=== PATIENT | male | born 1990 | race Caucasian/White ===

== ENCOUNTER 2017-10-23 13:35 | Emergency (ER) | payer MEDICAID ==
[2017-10-23] MEDS ORDERED: MORPHINE SULFATE 10 MG/ML INJ IV ONE ×2 (14:19→15:11)
[2017-10-23] MEDS ORDERED: NORMAL SALINE 1000 ML 1,000 ML IV ONE (14:19)
[2017-10-23] MEDS ORDERED: ONDANSETRON HCL INJ/PF 4 MG/2 ML SDV IV ONE ×2 (14:19→15:11)
--- NOTE | 2017-10-23 14:20 | ER Document Report ---
ED Medical Screen (RME) - General Chief Complaint: Abdominal Pain Stated Complaint: ABDOMINAL PAIN Notes: 27-year-old male with a 2 day history of worsening epigastric pain. States that he is presently 4 years post cholecystectomy. Food makes it worse. No fever. Cannot keep anything down. Pain is rated as a 4/5 on a numeric pain scale. No fever. No recent surgeries. Denies any heavy alcohol use. Was engaged in some marijuana use recently but not a heavy smoker. Not smoke cigarettes. I have greeted and performed a rapid initial assessment of this patient. A comprehensive ED assessment and evaluation of the patient, analysis of test results and completion of the medical decision making process will be conducted by additional ED providers. TRAVEL OUTSIDE OF THE [place] IN LAST 30 DAYS: No - Related Data Allergies/Adverse Reactions: codeine Allergy (Verified 10/23/17 13:37) haloperidol [From Haldol] Allergy (Verified 10/23/17 13:37) ketorolac Allergy (Verified 10/23/17 13:39) Past Medical History - General Information source: Patient - Social History Cigarette use (# per day): No Frequency of alcohol use: Occasional Drug Abuse: Marijuana Lives with: Family Family history: Reviewed & Not Pertinent Review of Systems - Review of Systems Constitutional: No symptoms reported EENT: No symptoms reported Cardiovascular: No symptoms reported Respiratory: No symptoms reported Gastrointestinal: Abdominal pain, Nausea, Vomiting. denies: Diarrhea Genitourinary: No symptoms reported Male Genitourinary: No symptoms reported Musculoskeletal: No symptoms reported Skin: No symptoms reported Hematologic/Lymphatic: No symptoms reported Neurological/Psychological: No symptoms reported Physical Exam - Vital signs Interpretation: Normal - General General appearance: Appears well, Alert, Other - Uncomfortable appearing - HEENT Head: Normocephalic, Atraumatic Eyes: Normal Pupils: PERRL - Respiratory Respiratory status: No respiratory distress Chest status: Nontender Breath sounds: Normal Chest palpation: Normal - Cardiovascular Rhythm: Regular Heart sounds: Normal auscultation Murmur: No - Abdominal Inspection: Normal Distension: No distension Bowel sounds: Normal Tenderness: Tender, Other - Tenderness to palpation with mild guarding in the epigastric region Organomegaly: No organomegaly - Back Back: Normal, Nontender - Extremities General upper extremity: Normal inspection, Nontender, Normal color, Normal ROM , Normal temperature General lower extremity: Normal inspection, Nontender, Normal color, Normal ROM , Normal temperature, Normal weight bearing. No: Jennifer's sign - Neurological Neuro grossly intact: Yes Cognition: Normal Orientation: AAOx4 [place] Coma Scale Eye Opening: Spontaneous [place] Coma Scale Verbal: Oriented [place] Coma Scale Motor: Obeys Commands [place] Coma Scale Total: 15 Speech: Normal Motor strength normal: LUE, RUE, LLE, RLE Sensory: Normal - Psychological Associated symptoms: Normal affect, Normal mood - Skin Skin Temperature: Warm Skin Moisture: Dry Skin Color: Normal
[2017-10-23 15:08] LABS: ABSOLUTE EOSINOPHILS # (AUTO) 0.1 10^3/uL (0.0-0.6); ABSOLUTE MONOCYTES (AUTO) 0.6 10^3/uL (0.1-1.4); ABSOLUTE NEUT (AUTO) 4.2 10^3/uL (1.7-8.2); BASOPHILS % (AUTO) 0.6 % (0-2); EOSINOPHILS % (AUTO) 1.8 % (0-6); HEMOGLOBIN 14.9 g/dL (13.5-17.0); LYMPHOCYTES % (AUTO) 28.7 % (13-45); MEAN CORPUSCULAR HEMOGLOBIN 31.5 pg (27.0-33.4); MEAN CORPUSCULAR HGB CONC 34.7 g/dL (32.0-36.0); MEAN CORPUSCULAR VOLUME 91 fl (80-97); MONOCYTES % (AUTO) 9.1 % (3-13); PLATELET COUNT 244 10^3/uL (150-450); RED BLOOD COUNT 4.74 10^6/uL (4.35-5.55); RED CELL DISTRIBUTION WIDTH 13.5 % (11.5-14.0); SEGMENTED NEUTROPHILS % (AUTO) 59.8 % (42-78); TOTAL CELLS COUNTED % (AUTO) 100 %; WHITE BLOOD COUNT 6.9 10^3/uL (4.0-10.5)
[2017-10-23 15:08] LABS: APPEARANCE,URINE CLEAR; BILIRUBIN,URINE NEGATIVE (NEGATIVE); COLOR,URINE STRAW; GLUCOSE, URINE NEGATIVE (NEGATIVE); KETONES,URINE NEGATIVE (NEGATIVE); LEUKOCYTE ESTERASE,URINE NEGATIVE (NEGATIVE); NITRITE,URINE NEGATIVE (NEGATIVE); PROTEIN,URINE NEGATIVE (NEGATIVE); URINE SPECIFIC GRAVITY 1.009; UROBILINOGEN,URINE NEGATIVE mg/dL (<2.0)
--- NOTE | 2017-10-23 15:17 | ER Document Report ---
ED GI/ - General Mode of Arrival: Ambulatory Information source: Patient TRAVEL OUTSIDE OF THE [place] IN LAST 30 DAYS: No <EBONY LAST - Last Filed: 10/23/17 15:21> <ABDIFATAHBRAYANKENTON - Last Filed: 10/23/17 23:28> - General Chief Complaint: Abdominal Pain Stated Complaint: ABDOMINAL PAIN Time Seen by Provider: 10/23/17 14:25 Notes: Patient is a 27 year old male with hypertension presents to the emergency department complaining of multiple symptoms including nausea, vomiting and epigastric abdominal pain onset 2 days ago. Patient states the pain is a 4/5 in severity and is exacerbated with food. At bedside patient states drinking contrast also exacerbates his pain. Patient denies fevers, diarrhea, hematemesis , being around livestock or sick contacts, or handling shellfish or reptiles. (EBONY LAST) - Related Data Allergies/Adverse Reactions: codeine Allergy (Verified 10/23/17 13:37) haloperidol [From Haldol] Allergy (Verified 10/23/17 13:37) ketorolac Allergy (Verified 10/23/17 13:39) Past Medical History - General Information source: Patient - Social History Smoking Status: Never Smoker Cigarette use (# per day): No Chew tobacco use (# tins/day): No Frequency of alcohol use: Occasional Drug Abuse: Marijuana - states has not had any recent use. Lives with: Family Family History: Hypertension Patient has suicidal ideation: No Patient has homicidal ideation: No - Past Medical History Cardiac Medical History: Reports: Hx Hypertension Past Surgical History: Reports: Hx Cholecystectomy - 2013 <EBONY LAST - Last Filed: 10/23/17 15:21> Review of Systems - Review of Systems Constitutional: No symptoms reported. denies: Fever EENT: No symptoms reported Cardiovascular: No symptoms reported Respiratory: No symptoms reported Gastrointestinal: See HPI, Abdominal pain, Nausea, Vomiting. denies: Diarrhea Genitourinary: No symptoms reported Male Genitourinary: No symptoms reported Musculoskeletal: No symptoms reported Skin: No symptoms reported Hematologic/Lymphatic: No symptoms reported Neurological/Psychological: No symptoms reported -: Yes All other systems reviewed and negative <EBONY LAST - Last Filed: 10/23/17 15:21> Physical Exam <EBONY LAST - Last Filed: 10/23/17 15:21> <KENTON RAHMAN - Last Filed: 10/23/17 23:28> - Vital signs Vitals: Temp Pulse Resp BP Pulse Ox 97.9 F 62 16 131/73 H 97 10/23/17 13:46 10/23/17 13:46 10/23/17 13:46 10/23/17 13:46 10/23/17 13:46 - Notes Notes: GENERAL: Alert, interacts well. No acute distress. HEAD: Normocephalic, atraumatic. EYES: Pupils equal, round, and reactive to light. Extraocular movements intact. ENT: Oral mucosa moist, tongue midline. NECK: Full range of motion. Supple. Trachea midline. LUNGS: Clear to auscultation bilaterally, no wheezes, rales, or rhonchi. No respiratory distress. HEART: Regular rate and rhythm. No murmurs, gallops, or rubs. ABDOMEN: Soft, tender to palpation to the left mid-abdomen and epigastric area. Obese. Non-distended. Bowel sounds present in all 4 quadrants. EXTREMITIES: Moves all 4 extremities spontaneously. NEUROLOGICAL: Alert and oriented x3. Normal speech. PSYCH: Normal affect, normal mood. SKIN: Warm, dry, normal turgor. No rashes or lesions noted. (EBONY LAST) Course - Laboratory Result Diagrams: 10/23/17 14:36 10/23/17 14:36 <EBONY LAST - Last Filed: 10/23/17 15:21> - Laboratory Result Diagrams: 10/23/17 14:36 10/23/17 14:36 <KENTON RAHMAN - Last Filed: 10/23/17 23:28> - Re-evaluation Re-evalutation: 10/23/17 18:03 CBC unremarkable, CMP grossly unremarkable, lipase normal, urinalysis unremarkable and shows no signs of dehydration, specific gravity is low at 1.009 , there are no ketones, there is no blood, urine drug screen shows marijuana which is not consistent with the patient's history that the last time he used was 3-4 weeks ago. Patient states he moved here from [place] 1 week ago but has not touched any marijuana in 3-[address] scan of the abdomen and pelvis revealed surgically absent gallbladder, normal appendix no acute process. At this time I do not have a specific explanation for the patient's pain. I discussed with the patient that I am concerned for the possibility of gastritis versus gastric ulcer or cyclic vomiting syndrome associated with marijuana use. Patient denies that there is any possibility that the symptoms are being caused by marijuana because he states he has not used in 3-4 weeks. Patient is advised to take Zantac 150 mg twice a day, Carafate and to use Bentyl for any cramping pains in his stomach. Follow-up with gastroenterology as an outpatient and return for fevers, worsening pain, blood in the vomit. ( KENTON RAHMAN) - Vital Signs Vital signs: Temp Pulse Resp BP Pulse Ox 98.1 F 60 16 128/67 H 99 10/23/17 18:44 10/23/17 18:44 10/23/17 13:46 10/23/17 18:44 10/23/17 18:44 - Laboratory Laboratory results interpreted by me: 10/23/17 14:36 Chloride 108 H Discharge <EBONY LAST - Last Filed: 10/23/17 15:21> <KENTON RAHMAN - Last Filed: 10/23/17 23:28> - Discharge Clinical Impression: Epigastric abdominal pain of unknown etiology Condition: Stable Disposition: HOME, SELF-CARE Additional Instructions: I do not know exactly what is causing her pain. It could be a gastric ulcer or irritation of your stomach called gastritis. Please drink plenty fluids, avoid spicy foods, acidic foods, coffee, chewing tobacco and fatty foods. Please take Zantac 150 mg twice a day for at least the next 2 weeks. Please take Carafate 1 tablet before each meal and before bedtime. Take this 1 hour after your other medications or ulcer other medications will not work. This medication helps to block the acid from hitting your stomach but if you take it before your other medications that will block the other medications from working. The Zofran and Phenergan are both for nausea. The Bentyl was to help with the pain in your stomach. Return for fevers or blood in your vomit. Please follow-up with a vault installer as an outpatient. Prescriptions: Dicyclomine HCl [Bentyl 20 mg Tablet] 20 mg PO QID #40 tablet Ondansetron [Zofran Odt 4 mg Tablet] 1 - 2 tab PO Q4H PRN #15 tab.rapdis PRN Reason: For Nausea/Vomiting Promethazine HCl [Phenergan 25 mg Tablet] 1 - 2 tab PO Q6H PRN #15 tablet PRN Reason: Ranitidine HCl [Zantac 150 mg Tablet] 150 mg PO BID #60 tablet Sucralfate [Carafate 1 gm Tablet] 1 gm PO ACHS #60 tablet Forms: Return to Work Referrals: LUIS VERA MD [ACTIVE STAFF] - Follow up in 1 week Scribe Attestation: 10/23/17 23:28 I personally performed the services described in the documentation, reviewed and edited the documentation which was dictated to the scribe in my presence, and it accurately records my words and actions. (KENTON RAHMAN) Scribe Documentation - Scribe Written by Sammye:: Niesha Avalos, 10/23/2017 15:20 acting as scribe for :: Wallace <EBONY LAST - Last Filed: 10/23/17 15:21>
[2017-10-23 15:27] LABS: ALANINE AMINOTRANSFERASE 33 U/L (21-72); ALBUMIN 4.1 g/dL (3.5-5.0); ALKALINE PHOSPHATASE 64 U/L (38-126); ANION GAP 11 (5-19); ASPARTATE AMINO TRANSFERASE 25 U/L (17-59); BILIRUBIN,DIRECT 0.3 mg/dL (0.0-0.4); BILIRUBIN,TOTAL 0.3 mg/dL (0.2-1.3); BLOOD UREA NITROGEN 10 mg/dL (7-20); CALCIUM 9.8 mg/dL (8.4-10.2); CARBON DIOXIDE 25 mmol/L (22-30); CHLORIDE 108 mmol/L (98-107); GLUCOSE 82 mg/dL (75-110); POTASSIUM 4.2 mmol/L (3.6-5.0); SODIUM 143.9 mmol/L (137-145); TOTAL PROTEIN 6.6 g/dL (6.3-8.2)
[2017-10-23] MEDS ORDERED: HYDROMORPHONE HCL INJ/PF 2 MG/ML AMPULE IV ONE (16:15)
[2017-10-23 16:56] LABS: URINE AMPHETAMINES SCREEN NEGATIVE; URINE BARBITURATES SCREEN NEGATIVE; URINE BENZODIAZEPINES SCREEN NEGATIVE; URINE COCAINE SCREEN NEGATIVE; URINE MARIJUANA (THC) SCREEN UNCONFIRMED POSITIVE; URINE METHADONE SCREEN NEGATIVE; URINE PHENCYCLIDINE SCREEN NEGATIVE
--- NOTE | 2017-10-23 17:52 | RADIOLOGY REPORT (SQ) ---
EXAM DESCRIPTION: CT ABD/PELVIS WITH IV ORAL COMPLETED DATE/TIME: 10/23/2017 5:37 pm REASON FOR STUDY: epigastric abdominal pain COMPARISON: None. TECHNIQUE: CT scan of the abdomen and pelvis performed with intravenous and oral contrast using estela stephane scanning technique with dynamic intravenous contrast injection. Images reviewed with lung, soft t issue, and bone windows. Reconstructed coronal and sagittal MPR images reviewed. Delayed images for e valuation of the urinary system also acquired. All images stored on PACS. All CT scanners at this facility use dose modulation, iterative reconstruction, and/or weight based d osing when appropriate to reduce radiation dose to as low as reasonably achievable (ALARA). [facility]: Dose Right [facility]: CareDose [facility]: Dose Right [facility]: Teradose 4D [facility]: [employer] CONTRAST TYPE AND DOSE: contrast/concentration: Isovue 370.00 mg/ml; Total Contrast Delivered: 100.0 ml; Total Saline Delivered: 45.0 ml RENAL FUNCTION: None required. The patient is less than 50 years old. RADIATION DOSE: CT Rad equipment meets quality standard of care and radiation dose reduction techniq ues were employed. CTDIvol: 21.1 mGy. DLP: 2270 mGy-cm. . LIMITATIONS: None. FINDINGS: LOWER CHEST: No significant findings. No nodules or infiltrates. LIVER: Normal size. No masses. No dilated ducts. SPLEEN: Normal size. No focal lesions. PANCREAS: No masses. No significant calcifications. No adjacent inflammation or peripancreatic fluid collections. Pancreatic duct not dilated. GALLBLADDER: Surgically absent. ADRENAL GLANDS: No significant masses or asymmetry. RIGHT KIDNEY AND URETER: No solid masses. No significant calcifications. No hydronephrosis or hyd roureter. LEFT KIDNEY AND URETER: No solid masses. No significant calcifications. No hydronephrosis or hydr oureter. AORTA AND VESSELS: No aneurysm. No dissection. Renal arteries, SMA, celiac without stenosis. RETROPERITONEUM: No retroperitoneal adenopathy, hemorrhage or masses. BOWEL AND PERITONEAL CAVITY: No obstruction. No visualized masses. No free fluid. No inflammatory ch anges or thickening of bowel wall. APPENDIX: Normal. PELVIS: No significant masses. Normal bladder. No free fluid. ABDOMINAL WALL: No masses. No hernias. BONES: No significant or acute findings. OTHER: No other significant finding. IMPRESSION: NO SIGNIFICANT OR ACUTE FINDINGS IN THE ABDOMEN OR PELVIS. TECHNICAL DOCUMENTATION: JOB ID: [id number] Quality ID # [id number]: Final reports with documentation of one or more dose reduction techniques (e.g., Au tomated exposure control, adjustment of the mA and/or kV according to patient size, use of iterative reconstruction technique) 2010 [employer]- All Rights Reserved Reading location - IP/workstation name: [email or web address]
[2017-10-23] MEDS ORDERED: METOCLOPRAMIDE HCL INJ/PF 10 MG/2 ML SDV IV ONE (17:54)
[2017-10-23] MEDS ORDERED: DIPHENHYDRAMINE HCL 50 MG/ML VIAL IV ONE (17:54)
[2017-10-23] MEDS ORDERED: DICYCLOMINE HCL INJ 20 MG/2 ML AMPULE IM ONE (17:55)
[2017-10-23 18:48] VITALS: BP 128/67
== END 2017-10-23 18:48 | disposition home or self-care (01) ==
LOC: ER 13:35
DX: R10.9 Unspecified abdominal pain (principal); R11.2 Nausea with vomiting, unspecified; R10.13 Epigastric pain; I10 Essential (primary) hypertension; Z88.6 Allergy status to analgesic agent; Z90.49 Acquired absence of other specified parts of digestive tract
CPT/HCPCS: 96376; 99284; 96372; 96361; 96374; 96375; 36415; 83690; 85025; 80053; 81001; 80307; 74177; J0500; J2270; J1170; J2405; J7030

== ENCOUNTER 2017-11-16 15:13 | Emergency (ER) | payer MEDICAID ==
--- NOTE | 2017-11-16 16:52 | ER Document Report ---
ED General - General Chief Complaint: Flank Pain Stated Complaint: ABDOMINAL PAIN Time Seen by Provider: 11/16/17 16:36 Mode of Arrival: Ambulatory Information source: Patient Notes: 27 yr old male hx of kidney stones presents with bilateral flank pain over the past few days with burning on urination. pt notes he passed a stone a few days prior, denies any fevers or cihlls., admits ot fatigue TRAVEL OUTSIDE OF THE [place] IN LAST 30 DAYS: No - HPI Onset: Just prior to arrival Onset/Duration: Sudden Quality of pain: Achy Severity: Mild Pain Level: 1 Associated symptoms: Nausea Exacerbated by: Denies Relieved by: Denies Similar symptoms previously: No Recently seen / treated by doctor: No - Related Data Allergies/Adverse Reactions: codeine Allergy (Verified 10/23/17 13:37) haloperidol [From Haldol] Allergy (Verified 10/23/17 13:37) ketorolac Allergy (Verified 10/23/17 13:39) Past Medical History - Social History Smoking Status: Never Smoker Cigarette use (# per day): No Chew tobacco use (# tins/day): No Smoking Education Provided: No Family History: Hypertension - Past Medical History Cardiac Medical History: Reports: Hx Hypertension Renal/ Medical History: Denies: Hx Peritoneal Dialysis Past Surgical History: Reports: Hx Cholecystectomy - 2013 Review of Systems - Review of Systems Notes: REVIEW OF SYSTEMS: CONSTITUTIONAL : Denies fever, chills, or sweats. Denies recent illness. EENT: Denies eye, ear, throat, or mouth pain or symptoms. Denies nasal or sinus congestion or discharge. Denies throat, tongue, or mouth swelling or difficulty swallowing. CARDIOVASCULAR: Denies chest pain. Denies palpitations or racing or irregular heart beat. Denies ankle edema. RESPIRATORY: Denies cough, cold, or chest congestion. Denies shortness of breath, difficulty breathing, or wheezing. GASTROINTESTINAL: admits to bilateral flank pain GENITOURINARY: dysuria MUSCULOSKELETAL: Denies back or neck pain or stiffness. Denies joint pain or swelling. SKIN: Denies rash, lesions or sores. HEMATOLOGIC : Denies easy bruising or bleeding. LYMPHATIC: Denies swollen, enlarged glands. NEUROLOGICAL: Denies confusion or altered mental status. Denies passing out or loss of consciousness. Denies dizziness or lightheadedness. Denies headache. Denies weakness or paralysis or loss of use of either side. Denies problems with gait or speech. Denies sensory loss, numbness, or tingling. Denies seizures. PSYCHIATRIC: Denies anxiety or stress. Denies depression, suicidal ideation, or homicidal ideation. ALL OTHER SYSTEMS REVIEWED AND NEGATIVE. Dictation was performed using [employer] voice recognition software PHYSICAL EXAMINATION: GENERAL: Well-appearing, well-nourished and in no acute distress. HEAD: Atraumatic, normocephalic. EYES: Pupils equal round and reactive to light, extraocular movements intact, sclera anicteric, conjunctiva are normal. ENT: Nares patent, oropharynx clear without exudates. Moist mucous membranes. NECK: Normal range of motion, supple without lymphadenopathy LUNGS: Breath sounds clear to auscultation bilaterally and equal. No wheezes rales or rhonchi. HEART: Regular rate and rhythm without murmurs ABDOMEN: Soft, nontender, nondistended abdomen. No guarding, no rebound. No masses appreciated. Musculoskeletal: Normal range of motion, no pitting or edema. No cyanosis. NEUROLOGICAL: Cranial nerves grossly intact. Normal speech, normal gait. Normal sensory, motor exams PSYCH: Normal mood, normal affect. SKIN: Warm, Dry, normal turgor, no rashes or lesions noted. Physical Exam - Vital signs Vitals: Temp Pulse Resp BP Pulse Ox 98.6 F 81 16 151/67 H 97 11/16/17 15:19 11/16/17 15:19 11/16/17 15:19 11/16/17 15:19 11/16/17 15:19 Course - Re-evaluation Re-evalutation: 11/16/17 16:51 pyelo vs kidney stone, labs pending 11/16/17 18:51 labs noted no acute abnormality, ct flank was negative, i do not see a specific cause of the patietns pain and he looks much more comfortable, will treat him symptomatically After performing a Medical Screening Examination, I estimate there is LOW risk for ACUTE APPENDICITIS, BOWEL OBSTRUCTION, ACUTE CHOLECYSTITIS, PERFORATED DIVERTICULITIS, INCARCERATED HERNIA, PANCREATITIS, TESTICULAR TORSION or PERFORATED ULCER, thus I consider the discharge disposition reasonable. Also, there is no evidence or peritonitis, sepsis, or toxicity. I have reevaluated this patient multiple times and no significant life threatening changes are noted. The patient and I have discussed the diagnosis and risks, and we agree with discharging home with close follow-up with the understanding that symptoms and presentations can change. We also discussed returning to the Emergency Department immediately if new or worsening symptoms occur. We have discussed the symptoms which are most concerning (e.g., bloody stool, fever, changing or worsening pain, intractable vomiting - standard verbal up date) that necessitate immediate return. - Vital Signs Vital signs: Temp Pulse Resp BP Pulse Ox 98.6 F 81 16 151/67 H 97 11/16/17 15:19 11/16/17 15:19 11/16/17 15:19 11/16/17 15:19 11/16/17 15:19 - Laboratory Result Diagrams: 11/16/17 17:25 11/16/17 17:25 Laboratory results interpreted by me: 11/16/17 17:25 Urine Urobilinogen 2.0 H - Diagnostic Test Radiology reviewed: Image reviewed, Reports reviewed Discharge - Discharge Clinical Impression: Flank pain Condition: Stable Disposition: HOME, SELF-CARE Instructions: Flank Pain ([facility]) Additional Instructions: Follow up with your physician tomorrow for further care or return to the ED IMMEDIATELY if symptoms worsen or new concerns occur. If you cannot afford to follow up with your primary care physician a list of low cost clinics have been provided at the end of your discharge papers as well. Prescriptions: Prednisone 60 mg PO DAILY #15 tablet
[2017-11-16] MEDS ORDERED: HYDROCODONE/ACETAMINOPHEN 5-325 MG TABLET PO ONE (17:17)
[2017-11-16 18:04] LABS: APPEARANCE,URINE CLEAR; BILIRUBIN,URINE NEGATIVE (NEGATIVE); COLOR,URINE YELLOW; GLUCOSE, URINE NEGATIVE (NEGATIVE); KETONES,URINE NEGATIVE (NEGATIVE); LEUKOCYTE ESTERASE,URINE NEGATIVE (NEGATIVE); NITRITE,URINE NEGATIVE (NEGATIVE); PROTEIN,URINE NEGATIVE (NEGATIVE)
[2017-11-16 18:05] LABS: ABSOLUTE EOSINOPHILS # (AUTO) 0.1 10^3/uL (0.0-0.6); ABSOLUTE LYMPHOCYTES (AUTO) 1.7 10^3/uL (0.5-4.7); ABSOLUTE MONOCYTES (AUTO) 0.6 10^3/uL (0.1-1.4); ABSOLUTE NEUT (AUTO) 6.3 10^3/uL (1.7-8.2); BASOPHILS % (AUTO) 0.4 % (0-2); HEMATOCRIT 41.3 % (37.9-51.0); HEMOGLOBIN 14.4 g/dL (13.5-17.0); LYMPHOCYTES % (AUTO) 19.2 % (13-45); MEAN CORPUSCULAR HEMOGLOBIN 31.2 pg (27.0-33.4); MEAN CORPUSCULAR HGB CONC 34.8 g/dL (32.0-36.0); MEAN CORPUSCULAR VOLUME 90 fl (80-97); MONOCYTES % (AUTO) 7.3 % (3-13); PLATELET COUNT 243 10^3/uL (150-450); RED CELL DISTRIBUTION WIDTH 13.3 % (11.5-14.0); SEGMENTED NEUTROPHILS % (AUTO) 72.1 % (42-78); TOTAL CELLS COUNTED % (AUTO) 100 %; WHITE BLOOD COUNT 8.8 10^3/uL (4.0-10.5)
[2017-11-16 18:28] LABS: ALANINE AMINOTRANSFERASE 33 U/L (21-72); ALBUMIN 4.3 g/dL (3.5-5.0); ALKALINE PHOSPHATASE 68 U/L (38-126); ANION GAP 13 (5-19); ASPARTATE AMINO TRANSFERASE 24 U/L (17-59); BILIRUBIN,DIRECT 0.4 mg/dL (0.0-0.4); BILIRUBIN,TOTAL 0.6 mg/dL (0.2-1.3); BLOOD UREA NITROGEN 15 mg/dL (7-20); CALCIUM 9.3 mg/dL (8.4-10.2); CARBON DIOXIDE 27 mmol/L (22-30); CHLORIDE 104 mmol/L (98-107); GLUCOSE 85 mg/dL (75-110); SODIUM 143.9 mmol/L (137-145)
--- NOTE | 2017-11-16 18:37 | RADIOLOGY REPORT (SQ) ---
EXAM DESCRIPTION: CT LTD RENAL STONE PROTOCOL ON COMPLETED DATE/TIME: 11/16/2017 6:28 pm REASON FOR STUDY: flank pain COMPARISON: None. TECHNIQUE: CT scan of the abdomen and pelvis performed without intravenous or oral contrast. Images reviewed with lung, soft tissue, and bone windows. Reconstructed coronal and sagittal MPR images revi ewed. All images stored on PACS. All CT scanners at this facility use dose modulation, iterative reconstruction, and/or weight based d osing when appropriate to reduce radiation dose to as low as reasonably achievable (ALARA). [facility]: Dose Right [facility]: CareDose [facility]: Dose Right [facility]: Teradose 4D [facility]: [employer] RADIATION DOSE: mGy. LIMITATIONS: None. FINDINGS: LOWER CHEST: No significant findings. No nodules or infiltrates. NON-CONTRASTED LIVER, SPLEEN, ADRENALS: Evaluation limited by lack of IV contrast. No identified sign ificant masses. PANCREAS: No masses. No peripancreatic inflammatory changes. GALLBLADDER: Surgically absent. RIGHT KIDNEY AND URETER: No suspicious masses. Assessment limited by lack of IV contrast. No signif icant calcifications. No hydronephrosis or hydroureter. LEFT KIDNEY AND URETER: No suspicious masses. Assessment limited by lack of IV contrast. No signifi cant calcifications. No hydronephrosis or hydroureter. AORTA AND RETROPERITONEUM: No aneurysm. No retroperitoneal masses or adenopathy. BOWEL AND PERITONEAL CAVITY: No obvious masses or inflammatory changes. No free fluid. APPENDIX: Normal. PELVIS, BLADDER, AND ABDOMINAL WALL:No abnormal masses. No free fluid. Bladder normal. BONES: No significant findings. OTHER: No other significant finding. IMPRESSION: NO SIGNIFICANT OR ACUTE PROCESS IN THE ABDOMEN OR PELVIS. COMMENT: Quality ID # 436: Final reports with documentation of one or more dose reduction techniques (e.g., Automated exposure control, adjustment of the mA and/or kV according to patient size, use of iterative reconstruction technique) TECHNICAL DOCUMENTATION: JOB ID: [id number] [employer]- All Rights Reserved Reading location - IP/workstation name: [email or web address]
[2017-11-16 18:53] VITALS: BP 150/68
== END 2017-11-16 18:56 | disposition home or self-care (01) ==
LOC: ER 15:13
DX: R10.9 Unspecified abdominal pain (principal); R30.0 Dysuria; R53.83 Other fatigue; I10 Essential (primary) hypertension; Z87.442 Personal history of urinary calculi; Z88.5 Allergy status to narcotic agent; Z88.8 Allergy status to other drugs, medicaments and biological substances
CPT/HCPCS: 36415; 76380; 80053; 81001; 85025; 99284

== ENCOUNTER 2018-01-21 13:39 | Emergency (ER) | payer SELFPAY ==
[2018-01-21 15:29] LABS: ABSOLUTE EOSINOPHILS # (AUTO) 0.1 10^3/uL (0.0-0.6); ABSOLUTE LYMPHOCYTES (AUTO) 1.4 10^3/uL (0.5-4.7); ABSOLUTE MONOCYTES (AUTO) 0.5 10^3/uL (0.1-1.4); ABSOLUTE NEUT (AUTO) 4.1 10^3/uL (1.7-8.2); BASOPHILS % (AUTO) 0.5 % (0-2); LYMPHOCYTES % (AUTO) 22.7 % (13-45); MEAN CORPUSCULAR HEMOGLOBIN 31.1 pg (27.0-33.4); MEAN CORPUSCULAR HGB CONC 34.3 g/dL (32.0-36.0); MEAN CORPUSCULAR VOLUME 91 fl (80-97); MONOCYTES % (AUTO) 8.2 % (3-13); PLATELET COUNT 215 10^3/uL (150-450); RED BLOOD COUNT 4.19 10^6/uL (4.35-5.55); RED CELL DISTRIBUTION WIDTH 13.2 % (11.5-14.0); SEGMENTED NEUTROPHILS % (AUTO) 66.6 % (42-78); TOTAL CELLS COUNTED % (AUTO) 100 %; WHITE BLOOD COUNT 6.1 10^3/uL (4.0-10.5)
[2018-01-21] MEDS ORDERED: LORAZEPAM 1 MG TABLET PO ONE (15:32)
[2018-01-21] MEDS ORDERED: OLANZAPINE 5 MG TABLET PO ONE (15:32)
--- NOTE | 2018-01-21 15:32 | ER Document Report ---
ED Psych Disorder / Suicide - General Chief Complaint: Psych Problem Stated Complaint: PSYCH EVAL Time Seen by Provider: 01/21/18 14:38 Notes: 27-year-old male brought in by police for suicidal ideation and depression with self-harm intent. Patient states that he moved here from [facility]. Was here with a cousin. Things just are not working out well. Feels depressed. States that he denies any intentional ingestions. Has cut himself on the wrists because he likes to see himself bleed. States that he ran out of money any has not been able to get his medications refilled her see a doctor. States that he does well on Zyprexa and Seroquel patient states that he just wishes he was TRAVEL OUTSIDE OF THE [place] IN LAST 30 DAYS: No - HPI Patient complains to provider of: Self injury Onset was: Gradual - Related Data Allergies/Adverse Reactions: codeine Allergy (Verified 10/23/17 13:37) haloperidol [From Haldol] Allergy (Verified 10/23/17 13:37) ketorolac Allergy (Verified 10/23/17 13:39) Past Medical History - General Information source: Patient - Social History Smoking Status: Never Smoker Chew tobacco use (# tins/day): No Frequency of alcohol use: None Drug Abuse: Marijuana Family History: Hypertension Patient has suicidal ideation: No Patient has homicidal ideation: Yes - Past Medical History Cardiac Medical History: Reports: Hx Hypertension Renal/ Medical History: Denies: Hx Peritoneal Dialysis Psychiatric Medical History: Reports: Hx Bipolar Disorder Past Surgical History: Reports: Hx Cholecystectomy - 2013 Review of Systems - Review of Systems Notes: Constitutional: denies: Chills, Diaphoresis, Fever, Malaise, Weakness EENT: denies: Eye discharge, Blurred vision, Tearing, Double vision, Nose congestion, Nose discharge, Throat swelling, Mouth pain Cardiovascular: denies: Palpitations, Heart racing, Orthopnea, Dyspnea, Chest pain Respiratory: denies: Cough, Hurts to breathe, Wheezing, Shortness of breath Gastrointestinal: denies: Abdominal pain, Diarrhea, Nausea, Vomiting, Black stools, bright red blood in stool Genitourinary: denies: Burning, Dysuria, Discharge, Frequency, Flank pain, Hematuria Musculoskeletal: denies: Joint pain, Joint swelling, Muscle pain, Muscle stiffness, back pain Hematologic/Lymphatic: denies: Anemia, Easy bleeding, Easy bruising, Blood clots Neurological/Psychological: denies: Confusion, Dementia,. Complains of depression and suicidal ideation. Skin: No lesions, no masses, no skin breakdown, no abscesses. Abrasions on the bilateral forearms from self injury Physical Exam - Vital signs Vitals: Pulse BP Pulse Ox 90 126/46 H 97 01/21/18 14:07 01/21/18 14:07 01/21/18 14:07 Interpretation: Normal - General General appearance: Appears well, Alert - HEENT Head: Normocephalic, Atraumatic Eyes: Normal Pupils: PERRL - Respiratory Respiratory status: No respiratory distress Chest status: Nontender Breath sounds: Normal Chest palpation: Normal - Cardiovascular Rhythm: Regular Heart sounds: Normal auscultation Murmur: No - Abdominal Inspection: Normal Distension: No distension Bowel sounds: Normal Tenderness: Nontender Organomegaly: No organomegaly - Back Back: Normal, Nontender - Extremities General upper extremity: Normal inspection, Nontender, Normal color, Normal ROM , Normal temperature General lower extremity: Normal inspection, Nontender, Normal color, Normal ROM , Normal temperature, Normal weight bearing. No: Jennifer's sign - Neurological Neuro grossly intact: Yes Cognition: Normal Orientation: AAOx4 [place] Coma Scale Eye Opening: Spontaneous Adeel Coma Scale Verbal: Oriented Adeel Coma Scale Motor: Obeys Commands Adeel Coma Scale Total: 15 Speech: Normal Motor strength normal: LUE, RUE, LLE, RLE Sensory: Normal - Psychological Associated symptoms: Normal affect, Normal mood - Skin Skin Temperature: Warm Skin Moisture: Dry Skin Color: Normal, Other - Superficial abrasions on the bilateral forearms Course - Re-evaluation Re-evalutation: 01/21/18 16:19 Unlikely patient is a significant harm to himself however has poor resources. We will have mental health evaluate the patient. We will give him good close outpatient follow-up information. Will start him on some Zyprexa and Seroquel overnight. 1 mg Ativan given. Will not place him on a legal hold at this time but will reevaluate him in the morning. Mental health is comfortable with this plan. Patient comfortable with this plan. 01/21/18 16:23 Laboratory 01/21/18 01/21/18 01/21/18 14:05 14:05 15:08 WBC 6.1 RBC 4.19 L Hgb 13.0 L Hct 38.0 MCV 91 MCH 31.1 MCHC 34.3 RDW 13.2 Plt Count 215 Seg Neutrophils % 66.6 Lymphocytes % 22.7 Monocytes % 8.2 Eosinophils % 2.0 Basophils % 0.5 Absolute Neutrophils 4.1 Absolute Lymphocytes 1.4 Absolute Monocytes 0.5 Absolute Eosinophils 0.1 Absolute Basophils 0.0 Sodium Potassium Chloride Carbon Dioxide Anion Gap BUN Creatinine Est GFR ( Amer) Est GFR (Non-Af Amer) Glucose Calcium Total Bilirubin Direct Bilirubin Neonat Total Bilirubin Neonat Direct Bilirubin Neonat Indirect Bili AST ALT Alkaline Phosphatase Total Protein Albumin Urine Color YELLOW Urine Appearance CLEAR Urine pH 6.0 Ur Specific Girard 1.025 Urine Protein NEGATIVE Urine Glucose (UA) NEGATIVE Urine Ketones NEGATIVE Urine Blood NEGATIVE Urine Nitrite NEGATIVE Urine Bilirubin NEGATIVE Urine Urobilinogen 2.0 H Ur Leukocyte Esterase NEGATIVE Urine WBC (Auto) 1 Urine RBC (Auto) 1 Squamous Epi Cells Auto <1 Urine Mucus (Auto) RARE Urine Ascorbic Acid NEGATIVE Salicylates Urine Opiates Screen NEGATIVE Urine Methadone Screen NEGATIVE Acetaminophen Ur Barbiturates Screen NEGATIVE Ur Phencyclidine Scrn NEGATIVE Ur Amphetamines Screen NEGATIVE U Benzodiazepines Scrn NEGATIVE Urine Cocaine Screen NEGATIVE U Marijuana (THC) Screen UNCONFIRMED POSITIVE Serum Alcohol 01/21/18 15:08 WBC RBC Hgb Hct MCV MCH MCHC RDW Plt Count Seg Neutrophils % Lymphocytes % Monocytes % Eosinophils % Basophils % Absolute Neutrophils Absolute Lymphocytes Absolute Monocytes Absolute Eosinophils Absolute Basophils Sodium 143.4 Potassium 3.8 Chloride 111 H Carbon Dioxide 23 Anion Gap 9 BUN 12 Creatinine 0.79 Est GFR ( Amer) > 60 Est GFR (Non-Af Amer) > 60 Glucose 85 Calcium 8.6 Total Bilirubin 0.5 Direct Bilirubin 0.2 Neonat Total Bilirubin Not Reportable Neonat Direct Bilirubin Not Reportable Neonat Indirect Bili Not Reportable AST 31 ALT 43 Alkaline Phosphatase 57 Total Protein 6.2 L Albumin 3.8 Urine Color Urine Appearance Urine pH Ur Specific Girard Urine Protein Urine Glucose (UA) Urine Ketones Urine Blood Urine Nitrite Urine Bilirubin Urine Urobilinogen Ur Leukocyte Esterase Urine WBC (Auto) Urine RBC (Auto) Squamous Epi Cells Auto Urine Mucus (Auto) Urine Ascorbic Acid Salicylates < 1.0 L Urine Opiates Screen Urine Methadone Screen Acetaminophen < 10 L Ur Barbiturates Screen Ur Phencyclidine Scrn Ur Amphetamines Screen U Benzodiazepines Scrn Urine Cocaine Screen U Marijuana (THC) Screen Serum Alcohol < 10 - Vital Signs Vital signs: Temp Pulse Resp BP Pulse Ox 90 126/46 H 97 01/21/18 14:07 01/21/18 14:07 01/21/18 14:07 - Laboratory Result Diagrams: 01/21/18 15:08 01/21/18 15:08 Laboratory results interpreted by me: 01/21/18 01/21/18 01/21/18 14:05 15:08 15:08 RBC 4.19 L Hgb 13.0 L Chloride 111 H Total Protein 6.2 L Urine Urobilinogen 2.0 H Salicylates < 1.0 L Acetaminophen < 10 L Discharge - Discharge Clinical Impression: Major depressive disorder Qualifiers: Major depression recurrence: single episode Active/Remission status: currently active Major depression episode severity: moderate Qualified Code(s): F32.1 - Major depressive disorder, single episode, moderate Condition: Good Instructions: Depression (OM) Prescriptions: Olanzapine [Zyprexa 5 mg Tablet] 5 mg PO Q12 7 Days #14 tablet Quetiapine Fumarate [Seroquel 100 mg Tablet] 100 mg PO Q12 7 Days #14 tablet
[2018-01-21 15:39] LABS: ALANINE AMINOTRANSFERASE 43 U/L (21-72); ALBUMIN 3.8 g/dL (3.5-5.0); ALKALINE PHOSPHATASE 57 U/L (38-126); ANION GAP 9 (5-19); ASPARTATE AMINO TRANSFERASE 31 U/L (17-59); BILIRUBIN,DIRECT 0.2 mg/dL (0.0-0.4); BILIRUBIN,TOTAL 0.5 mg/dL (0.2-1.3); BLOOD UREA NITROGEN 12 mg/dL (7-20); CALCIUM 8.6 mg/dL (8.4-10.2); CARBON DIOXIDE 23 mmol/L (22-30); CHLORIDE 111 mmol/L (98-107); GLUCOSE 85 mg/dL (75-110); POTASSIUM 3.8 mmol/L (3.6-5.0); SODIUM 143.4 mmol/L (137-145); TOTAL PROTEIN 6.2 g/dL (6.3-8.2)
[2018-01-21 15:40] LABS: ACETAMINOPHEN < 10 ug/mL (10-30); ALCOHOL < 10 mg/dL (NONE DETECTED); SALICYLATE < 1.0 mg/dL (2.0-20.0)
[2018-01-21 15:45] LABS: APPEARANCE,URINE CLEAR; BILIRUBIN,URINE NEGATIVE (NEGATIVE); COLOR,URINE YELLOW; GLUCOSE, URINE NEGATIVE (NEGATIVE); KETONES,URINE NEGATIVE (NEGATIVE); LEUKOCYTE ESTERASE,URINE NEGATIVE (NEGATIVE); NITRITE,URINE NEGATIVE (NEGATIVE); PROTEIN,URINE NEGATIVE (NEGATIVE); URINE SPECIFIC GRAVITY 1.025
[2018-01-21 15:58] LABS: URINE AMPHETAMINES SCREEN NEGATIVE; URINE BARBITURATES SCREEN NEGATIVE; URINE BENZODIAZEPINES SCREEN NEGATIVE; URINE COCAINE SCREEN NEGATIVE; URINE MARIJUANA (THC) SCREEN UNCONFIRMED POSITIVE; URINE METHADONE SCREEN NEGATIVE; URINE PHENCYCLIDINE SCREEN NEGATIVE
[2018-01-21] MEDS ORDERED: QUETIAPINE FUMARATE 100 MG TABLET PO ONE (16:21)
--- NOTE | 2018-01-21 16:26 | PSYCHOLOGICAL NOTE ---
Psych Note - Psych Note Psych Note: Reason for Consult: suicidal ideation patient noted to have been received via EMS. EMS reports patient has had thoughts of suicide and cut left wrist superficially with a knife. states has been hearing voices telling him he is better off . states he has been off of all medications x several months r/t no doctor. Clinician notes patient asked attending nurse prior to evaluation if he could get help getting back to [place]. Patient reports that he came to [facility] because he "wants to kill myself." He disclosed that he came to [place] to be with his cousin because they said that he did help however it was a "big mistake." He reports that he is chronic passive suicidal ideation stating he thinks about hurting himself at least once a day however since last night has become more intense with thoughts of things being better off if he was . He reports that he had thoughts of running out into traffic however denies actually doing this and calling for assistance immediately to get help; "I called because I was walking towards traffic but I thought before I do that I should get help."Patient discloses that about a year ago he attempted to kill himself by cutting. Clinician observed scar running up the center of his wrist. He reports that he was inpatient after that event. He continued disclosed that at 21 he attempted to hang himself while he was living in [place]. Clinician asked the patient about wanting help to get back to [place] he confirms stating that he does not want to stay here anymore; "I want to go to [place] to where my family is.... I have better support there then here". He reports that his cousin and he are unable to pay the $320 plane ticket. When asked who is in [place] he reports that he has an aunt and cousins there however they were unable to assist either with getting him back to [place]. Patient disclosed that he does not have any assistance from his parents and has no relationship with them. When asked about visual or auditory hallucinations he states suffers from hallucinations every day mainly at night. He discloses that they are shadows that he sees and he hears voices outside of his head like people talking to him. Patient is alert and orientated to person, place, time and circumstance. Mood is dysphoric with exaggerated affect as evidenced by frequent sighing and grimacing. Patient endorses passive chronic suicidal ideation denies homicidal ideation. Eye contact was poor. Patient endorses auditory and visual hallucinations however patient's reports are not congruent with known manifestations. Patient is not demonstrating responding to internal stimuli i.e. organized and linear thought processes, conversational speech is within normal rate, tone and prosody. Intellectual abilities appear to be within the average range. Attention and concentration are good. Insight, judgment, impulse control are fair. Diagnosis 311 (F32.9) unspecified depressive disorder 300.00 (F41.9) unspecified anxiety disorder Patient does demonstrate some cluster B traits Impression/plan: Patient is recommended for overnight mental health observation. Patient discloses passive suicidal ideation i.e. no plans means or intent. While patient disclosed wanting to walk into traffic he immediately called for assistance which demonstrates good insight and judgment. Patient reports he has been off his medications and he has an increase in depressive symptoms. Patient endorses auditory and visual hallucinations however patient' s reports are not congruent with known manifestations. Patient is not demonstrating responding to internal stimuli i.e. organized and linear thought processes, conversational speech is within normal rate, tone and prosody. Patient will be reevaluated. Dr. Yuan was consulted and the care management of this patient; attending physician is in agreement with recommendations and disposition.
--- NOTE | 2018-01-21 18:33 | EKG REPORT ---
SEVERITY:- NORMAL ECG - SINUS ARRHYTHMIA. : Confirmed by: Robert Stevenson MD 21-Jan-2018 18:33:22
--- NOTE | 2018-01-22 09:16 | PSYCHOLOGICAL NOTE ---
Psych Note - Psych Note Psych Note: Reason for Consult: suicidal ideation patient noted to have been received via EMS. EMS reports patient has had thoughts of suicide and cut left wrist superficially with a knife. states has been hearing voices telling him he is better off . states he has been off of all medications x several months r/t no doctor. Check-in conducted with patient Patient states that he is "all right... Still has some passing thoughts but not as bad as yesterday." He discloses that he just wants to go back to [place]; "I might just have to walk." Clinician discussed alternate possibilities such as speaking to his cousin, homeless alf, or possible the program that assists people in returning home to there support network. Patient states he would like the information on the program and alf, he reports he will not call his cousin because they are not speaking right now. Diagnosis 311 (F32.9) unspecified depressive disorder 300.00 (F41.9) unspecified anxiety disorder Patient does demonstrate some cluster B traits Impression/plan: Patient is cleared from acute psychiatric services. Patient demonstrates forward thinking by identifying wanting to go back to [place]. He currently has no outpatient mental health provider and would like resources. Patient suffers from chronic passive suicidal ideation i.e. no plans means or intent. patient does not meet IVC criteria per [place] GS 122C. Dr. Yuan was consulted and the care management of this patient; attending physician is in agreement with recommendations and disposition.
--- NOTE | 2018-01-22 10:04 | ER Document Report ---
Doctor's Note Notes: 01/22/18 10:03 Rounds: Chart reviewed and patient interviewed. Patient being evaluated for depression and the. Laboratory studies were normal except for positive for marijuana on drug test. Vital signs are all normal. Patient appears to be medically stable for transfer or discharge. Neelam Turner MD
[2018-01-22 10:13] VITALS: BP 132/79
== END 2018-01-22 10:16 | disposition home or self-care (01) ==
LOC: ER 13:39
DX: F32.1 Major depressive disorder, single episode, moderate (principal); S50.812A Abrasion of left forearm, initial encounter; S50.811A Abrasion of right forearm, initial encounter; X78.1XXA Intentional self-harm by knife, initial encounter; F41.9 Anxiety disorder, unspecified; R45.851 Suicidal ideations; R44.0 Auditory hallucinations; R44.1 Visual hallucinations
CPT/HCPCS: 36415; 80053; 80307; 81001; 85025; 93005; 93010; 99285

== ENCOUNTER 2018-01-22 10:51 | Emergency (ER) | payer SELFPAY ==
[2018-01-22 10:58] VITALS: BP 129/62
--- NOTE | 2018-01-22 11:22 | ER Document Report ---
ED Medical Screen (RME) - General Chief Complaint: Suicidal Ideation Stated Complaint: SUICIDAL IDEATIONS Time Seen by Provider: 01/22/18 11:20 Mode of Arrival: Ambulatory Information source: Patient Notes: 27-year-old male with bipolar disorder presents with complaint of suicidal ideation. Patient states his plan is to walk in front of traffic. Patient was discharged 5 minutes prior to checking back in. He has had a recent psych evaluation and was cleared from their standpoint. He states that he is homeless , has no money and wants to go home. No additional labs ordered by physician in triage due to recent labs drawn within the last 24 hours. Patient was provided a cab voucher, walked out the front door and told the cable testers helper to leave because he was checking back in. I have greeted and performed a rapid initial assessment of this patient. A comprehensive ED assessment and evaluation of the patient, analysis of test results and completion of medical decision making process we will be contacted by additional ED providers. PHYSICAL EXAMINATION: GENERAL: Well-appearing, well-nourished and in no acute distress. HEAD: Atraumatic, normocephalic. EYES: Pupils equal round extraocular movements intact, conjunctiva are normal. ENT: Nares patent NECK: Normal range of motion LUNGS: No respiratory distress Musculoskeletal: Normal range of motion NEUROLOGICAL: Normal speech, normal gait. PSYCH: Suicidal SKIN: Warm, Dry, normal turgor, no rashes or lesions noted. TRAVEL OUTSIDE OF THE [place] IN LAST 30 DAYS: No - HPI Onset: Other Quality of pain: No pain Associated Symptoms: None Exacerbated by: Denies Relieved by: Denies Similar symptoms previously: Yes Recently seen / treated by doctor: Yes - 01/22/18 01/21/18 - Related Data Allergies/Adverse Reactions: codeine Allergy (Verified 10/23/17 13:37) haloperidol [From Haldol] Allergy (Verified 10/23/17 13:37) ketorolac Allergy (Verified 10/23/17 13:39) Past Medical History - Social History Chew tobacco use (# tins/day): No Frequency of alcohol use: None Drug Abuse: None Family history: Reviewed & Not Pertinent - Past Medical History Cardiac Medical History: Reports: Hx Hypertension Renal/ Medical History: Denies: Hx Peritoneal Dialysis Psychiatric Medical History: Reports: Hx Bipolar Disorder Past Surgical History: Reports: Hx Cholecystectomy - 2013 Physical Exam - Vital signs Vitals: Temp Pulse Resp BP Pulse Ox 97.4 F 66 18 129/62 H 97 01/22/18 10:56 01/22/18 10:56 01/22/18 10:56 01/22/18 10:56 01/22/18 10:56 Course - Vital Signs Vital signs: Temp Pulse Resp BP Pulse Ox 97.4 F 66 18 129/62 H 97 01/22/18 10:56 01/22/18 10:56 01/22/18 10:56 01/22/18 10:56 01/22/18 10:56 Doctor's Discharge - Discharge Disposition: ELOPED
--- NOTE | 2018-01-22 12:20 | ER Document Report ---
Doctor's Note Notes: 01/22/18 12:20 Went to evaluate patient in bed assigned and no one is there. Neelam Turner MD
== END 2018-01-22 12:10 | disposition left against medical advice (07) ==
LOC: ER 10:51
DX: Z53.21 Procedure and treatment not carried out due to patient leaving prior to being seen by health care provider (principal); R45.851 Suicidal ideations; Z59.0 Homelessness; I10 Essential (primary) hypertension
CPT/HCPCS: 99281